=== PATIENT | male | born 1960 | race Caucasian/White ===

== ENCOUNTER 2018-05-12 04:23 | Emergency (ER) | payer OTHER ==
[~2018-05-12] VITALS: Ht 177.8 cm; Wt 98.1 kg
[2018-05-12 04:29] VITALS: BP 125/79
[2018-05-12] MEDS ORDERED: CEPH-572 PO (04:59)
[2018-05-12] MEDS ORDERED: TETanus/Pertussis (Acell)/Diphther VAC/PF (Tdap-Adult) 0.5ml syringe IM ONE (05:00)
[2018-05-12] MEDS ORDERED: LIDOcaine 1% 30ml preserv. free vial IJ ONE (05:00)
== END 2018-05-12 05:30 | disposition home or self-care (01) ==
LOC: ER 04:25
DX: S61.242A Puncture wound with foreign body of right middle finger without damage to nail, initial encounter (principal); W45.8XXA Other foreign body or object entering through skin, initial encounter; Y93.89 Activity, other specified; Y92.89 Other specified places as the place of occurrence of the external cause; Y99.8 Other external cause status
CPT/HCPCS: 10120; 90471; 90715; 99284